=== PATIENT | male | born 1990 | race Caucasian/White ===

== ENCOUNTER 2021-08-03 23:03 | Emergency (ER) | payer OTHER ==
[~2021-08-03] VITALS: Ht 177.8 cm; Wt 77.1 kg
[2021-08-03 23:18] VITALS: BP 133/73
[2021-08-03] MEDS ORDERED: ALPR2TAB2 PO (23:23)
--- NOTE | 2021-08-03 23:26 | NUR ---
Patient discharged to home in stable condition. Written and verbal after care instructions given. Patient verbalizes understanding of instruction.
== END 2021-08-03 23:27 | disposition home or self-care (01) ==
LOC: ER 23:12
DX: Z76.0 Encounter for issue of repeat prescription (principal); F41.9 Anxiety disorder, unspecified; Z60.2 Problems related to living alone